=== PATIENT | male | born 1995 | race African-American/Black ===

== ENCOUNTER 2021-07-17 10:11 | Emergency (ER) | payer SELFPAY ==
[~2021-07-17] VITALS: Ht 175.3 cm; Wt 59.0 kg
[2021-07-17] MEDS ORDERED: CEFTRIAXONE SODIUM 500 MG/VIAL IM ONE (11:00)
[2021-07-17] MEDS ORDERED: LIDOCAINE HCL 1% 20ML VIAL (Pyxis) INJ INFIL ONE (11:00)
[2021-07-17 11:06] LABS: CLARITY URINE CLEAR (CLEAR); COLOR URINE YELLOW (YELLOW); KETONES URINE NEGATIVE (NEGATIVE); LEUKOCYTE ESTERASE URINE 2+ (NEGATIVE); NITRITE URINE NEGATIVE (NEGATIVE); OCCULT BLOOD URINE 1+ (NEGATIVE); PH URINE 5.5 (4.5-8.0); PROTEIN URINE TRACE (NEGATIVE); SPECIFIC GRAVITY URINE 1.024 (1.005-1.030); UROBILINOGEN URINE 0.2 E.U./dL (0.2-1.0)
[2021-07-17] MEDS ORDERED: DOXY100C42 PO (11:13)
[2021-07-17 11:38] VITALS: BP 131/79
== END 2021-07-17 11:53 | disposition home or self-care (01) ==
LOC: ER 10:11
DX: N34.2 Other urethritis (principal); Z20.2 Contact with and (suspected) exposure to infections with a predominantly sexual mode of transmission
CPT/HCPCS: 81003; 87077; 87086; 96372; 99283; J0696; J3490; Z7610